=== PATIENT | male | born 1955 | race Caucasian/White ===

== ENCOUNTER 2018-11-01 10:36 | Outpatient (CLI) | payer BC ==
[~2018-11-01] VITALS: Ht 162.6 cm; Wt 79.4 kg
[2018-11-01] MEDS ORDERED: EMPA1TAB PO (10:53)
[2018-11-01] MEDS ORDERED: EXEN2PEN SQ (10:53)
[2018-11-01] MEDS ORDERED: GABA-488 PO (10:53)
[2018-11-01] MEDS ORDERED: TRAM50TA2 PO (10:53)
[2018-11-01] MEDS ORDERED: PRAV40TA2 PO (10:53)
[2018-11-01] MEDS ORDERED: GLIP5TAB13 PO (10:53)
[2018-11-01] MEDS ORDERED: ASPI-586 PO (10:53)
[2018-11-01] MEDS ORDERED: LORA1TAB PO (10:53)
[2018-11-01] MEDS ORDERED: FISH1CAP15 PO (10:53)
[2018-11-01] MEDS ORDERED: POLY17PO6 PO (10:58)
[2018-11-01] MEDS ORDERED: INUL1TAB4 PO (10:58)
[2018-11-01 11:00] VITALS: BP 116/82
== END 2018-11-01 12:05 | disposition home or self-care (01) ==
LOC: PREOP 10:36
PROVIDERS: ATTEND Orthopaedic Surgery
DX: Z01.818 Encounter for other preprocedural examination (principal)
CPT/HCPCS: 87081; 93005

== ENCOUNTER 2018-11-08 10:53 | Day surgery (SDC) | payer BC ==
[~2018-11-08] VITALS: Ht 162.6 cm; Wt 79.4 kg
[2018-11-08 10:53] VITALS: BP 121/80
[~2018-11-08 10:53] MED LIST: ASPI-586 PO; EMPA1TAB PO; EXEN2PEN SQ; FISH1CAP15 PO; GABA-488 PO; GLIP5TAB13 PO; INUL1TAB4 PO; LORA1TAB PO; POLY17PO6 PO; PRAV40TA2 PO; TRAM50TA2 PO
[2018-11-08] MEDS ORDERED: ceFAZolin 2 GM IV Premixed 50 ML IV ONE (11:15)
[2018-11-08] MEDS ORDERED: VANCOMYCIN 1000 MG/VIAL ONE (11:21)
[2018-11-08] MEDS ORDERED: BUP/EPI 0.5% 1:200,000 (SENSORCAINE) 30 ML VIAL ONE (11:21)
[2018-11-08] MEDS ORDERED: fentaNYL INJECTION 100 MCG/2 ML AMP ONE ×2 (11:33→15:06)
[2018-11-08] MEDS ORDERED: MIDAZOLAM 2 MG/2 ML (VERSED) VIAL ONE (11:33)
[2018-11-08] MEDS ORDERED: BACITRACIN 100,000 UNIT/NS 1000 ML POUR BOTTLE IR ONE ×2 (12:15)
[2018-11-08] MEDS: LACTATED RINGERS 1,000 ML IV PRN ×2 (12:40→14:30)
[2018-11-08] MEDS ORDERED: LIDOCAINE PF 2% 5 ML (XYLOCAINE) VIAL ONE (13:34)
[2018-11-08] MEDS ORDERED: SEVOFLURANE (ULTANE) 15 ML INHAL SOLN ONE ×5 (13:34→15:20)
[2018-11-08] MEDS ORDERED: ROCURONIUM 10 MG/ML 5 ML SYRINGE IV ONE (13:34)
[2018-11-08] MEDS ORDERED: proPOfol 200 MG/20 ML (DIPRIVAN) VIAL IV ONE (13:34)
[2018-11-08] MEDS ORDERED: PROPOFOL INJECTION 50 ML IV ONE (13:34)
[2018-11-08] MEDS ORDERED: GLYCOPYRROLATE 0.2 MG/ML (ROBINUL) 2 ML VIAL ONE (14:45)
[2018-11-08] MEDS ORDERED: NEOSTIGMINE 1 MG/ML 5 ML SYRINGE ONE (14:45)
[2018-11-08] MEDS ORDERED: ONDANSETRON 4 MG/2 ML (SDV) Z0FRAN ONE (14:45)
[2018-11-08] MEDS ORDERED: PHENYLEPHRINE 100 MCG/ML 10 ML (ANESTHESIA) SYR ONE (14:48)
[2018-11-08] MEDS ORDERED: PROMETHAZINE 25 MG (PHENERGAN) TAB PO PRN (15:15)
[2018-11-08] MEDS ORDERED: ACETAMINOPHEN 325 MG TABLET PO PRN (15:15)
[2018-11-08] MEDS ORDERED: BISACODYL 5 MG (DULCOLAX) TABLET PO PRN (15:15)
[2018-11-08] MEDS ORDERED: oxyCODONE/APAP 5/325MG (PERCOCET 5) TABLET PO PRN (15:15)
[2018-11-08] MEDS ORDERED: ONDANSETRON 4 MG/2 ML (SDV) Z0FRAN IV PRN (15:15)
[2018-11-08] MEDS ORDERED: HYDROcodone/APAP 5 MG/325 MG (LORTAB) TAB PO PRN (15:15)
[2018-11-08] MEDS ORDERED: BISACODYL 10 MG SUPP (DULCOLAX) PR PRN (15:15)
[2018-11-08] MEDS ORDERED: HYDROmorphone 2 MG/ML VIAL (DILAUDID) IV ONE (15:30)
[2018-11-08] MEDS ORDERED: ONDANSETRON 4 MG/2 ML (SDV) Z0FRAN IVP PRN (15:30)
[2018-11-08] MEDS ORDERED: morphine INJ 10 MG/ML 1ML (SYR OR VIAL) IVP ONE (15:30)
--- NOTE | 2018-11-08 16:34 | Diagnostic Imaging Report ---
INDICATION: Fluoroscopy during lumbar spine surgery. FINDINGS: Fluoroscopy was provided in OR during lumbar spine surgery. 8 seconds of fluoroscopy was utilized. Single image demonstrates surgical retractors at the level of L4 posteriorly, a surgical instrument noted posteriorly at L5. IMPRESSION: Fluoroscopy during lumbar spine surgery. Dictated by: Dictated on workstation # [id number]
[2018-11-08 17:05] VITALS: BP 137/82
[2018-11-08] MEDS: morphine INJ 4 MG/ML 1 ML (VIAL/SYRINGE) IVP PRN ×2 (19:30→23:42)
[2018-11-08 19:45] VITALS: BP 127/72
[2018-11-08] MEDS: ceFAZolin INJECTION 1,000 MG in NS (IVPB) 50 ML IV SCH (20:21)
[2018-11-08] MEDS: FAMOTIDINE 20 MG (PEPCID) TABLET PO SCH (20:21)
[2018-11-09 00:18] VITALS: BP 121/71
--- NOTE | 2018-11-09 00:32 | OPERATIVE REPORT ---
DATE OF SERVICE: 11/08/2018 SURGEON: Christie Romero DO OCCUPATIONAL THERAPY AIDE: RASHAAD Lanier This is a medically necessary procedure. Assistance was necessary for retraction of vital neurovascular structures. Without an lpn or medical assistant, the procedure would not be possible. PREOPERATIVE DIAGNOSES: 1. Lumbar spinal stenosis (lateral recess, connective tissue). 2. Lumbar radiculopathy. 3. Neurogenic claudication. POSTOPERATIVE DIAGNOSES: 1. Lumbar spinal stenosis (lateral recess, connective tissue). 2. Lumbar radiculopathy. 3. Neurogenic claudication. PROCEDURE PERFORMED: Bilateral L3-4, bilateral L5 laminectomy with hemifacetectomies and foraminotomies. COMPLICATIONS: None. SPECIMEN SENT: None. DRAIN PLACED: Hemovac. ESTIMATED BLOOD LOSS: Minimal. ANESTHESIA: General endotracheal tube anesthesia with local anesthetic. HISTORY OF PRESENT ILLNESS: The patient is a very pleasant 62-year-old gentleman who presented to me with severe bilateral lower extremity pain secondary to neurogenic claudication. MRI demonstrated spinal stenosis, worse at these levels. He did wish to proceed with surgery as he failed all conservative measures and his quality of life was severely compromised. DESCRIPTION OF PROCEDURE: The patient was identified by name on wrist band in the preoperative holding area. His operative site was signed, consent was signed. SCDs were placed. Neuromonitoring was hooked up. Antibiotics were started. He was taken to the operating room theater and placed under general endotracheal tube anesthesia and then transferred to the operating room table in the prone position. He was prepped and draped in the usual sterile fashion. Formal timeout was conducted. Lateral x-ray was then brought in and we verified our levels, so I made a midline lumbar incision and proceeded with bilateral subperiosteal paraspinal muscular approach exposing the posterior elements at L3-L4 and L4-L5. I then used a Leksell rongeur followed by a high speed bur and Kerrisons to perform a bilateral laminectomy with hemifacetectomies and foraminotomies. I paid particular attention on the left side where his symptoms were and I performed complete foraminotomies. I was finished. There was no further neurologic compression at these levels. I maintained hemostasis, irrigated the wound, placed a deep Hemovac drain subfascially. I closed the wound in my usual layered fashion utilizing 0 Vicryl followed by 2-0 Vicryl followed by running 3-0 subcuticular stitch. I applied dressings and took the patient in the supine position to the PACU where he awoke without incident. He tolerated the procedure well. PLAN: At this time is to admit the patient overnight for IV antibiotics, IV pain control and postoperative monitoring. I will plan to discharge him on postop day #1. He knows to keep his wound clean and dry. Job ID: [id number] DocumentID: [id number] Dictated Date: 11/08/2018 15:04:31 Mobility Architect Date: 11/09/2018 00:31:20 Dictated By: CHRISTIE ROMERO DO
[2018-11-09 04:00] VITALS: BP 139/74
[2018-11-09] MEDS: morphine INJ 4 MG/ML 1 ML (VIAL/SYRINGE) IVP PRN (05:29)
[2018-11-09] MEDS: ceFAZolin INJECTION 1,000 MG in NS (IVPB) 50 ML IV SCH ×2 (05:30→12:08)
[2018-11-09] MEDS ORDERED: OXYC1TAB87 PO (05:55)
--- NOTE | 2018-11-09 05:57 | Discharge Inst-Simple/Standard ---
Discharge Inst-Standard Discharge Medications New, Converted or Re-Newed RX: RX on Chart Patient Instructions/Follow Up Plan of Care/Instructions/FU: follow up in clinic in 2 weeks, please call [phone] for appointment dont bend, lift, twist push or pull 5lb weight restriction keep incision covered, clean and dry Activity as Tolerated: No Discharge Diet: ADA Diet Return to The Hospital For: chest pain, shortness of breath fever, chills, night sweats new onsent weakness, numbness TIEN HARRISON Nov 09, 2018 05:57
--- NOTE | 2018-11-09 06:00 | Discharge Summary ---
Diagnosis/Chief Complaint Date of Admission 11/08/2018 Date of Discharge 11/09/2018 Admission Diagnosis Admission Diagnosis lumbar stenosis with neurogenic claudication Discharge Diagnosis same Reason Hospital Visit L3-5 laminectomy Discharge Summary Hospital Course Hospital Course Mr Sapp was admitted for lumbar stenosis to undergo L3-5 laminectomy. He tolerated this procedure well without complication. His post operative course was uneventful and his vitals remained table and his pain was controlled. He was dismissed home on POD #1 Labs Laboratory Tests 11/08/18 11:43: Glucometer 123H Procedures None. Discharge Physical Examination Allergies: Coded Allergies: No Known Drug Allergies (Unverified , 11/01/18) Vitals & I&Os Vital Signs Date Time Temp Pulse Resp B/P (MAP) Pulse Ox O2 Delivery O2 Flow Rate FiO2 11/09/18 04:00 97.7 105 18 139/74 (95) 95 Room Air General Appearance: Alert, Oriented X3, Cooperative HEENT: Atraumatic Respiratory: Normal Air Movement Cardiovascular: Regular Rate Extremities: No Clubbing, No Cyanosis, No Edema, Normal Pulses Skin: No Rashes, No Breakdown Neuro: Normal Gait, Normal Speech, Strength at 5/5 X4 Ext Psych/Mental Status: Mental Status NL Discharge Home Medications Reviewed and agree with Discharge Medication list on patient's Discharge Instruction sheet Instructions to Patient/Family Please see electronic discharge instructions given to patient. Clinical Quality Measures DVT/VTE Risk/Contraindication: Risk Factor Score Per Nursin RFS Level Per Nursing on Admit: 4+=Very High TIEN HARRISON Nov 09, 2018 06:00
[2018-11-09] MEDS ORDERED: MULTIVIT W/MINERALS TAB (THERAGRAN M) PO SCH (07:00)
[2018-11-09 08:00] VITALS: BP 115/69
[2018-11-09] MEDS: FAMOTIDINE 20 MG (PEPCID) TABLET PO SCH (08:27)
[2018-11-09] MEDS ORDERED: LORA1TAB PO (09:40)
[2018-11-09] MEDS ORDERED: INUL1TAB4 PO (09:40)
[2018-11-09] MEDS ORDERED: ERGO50006 PO (09:40)
[2018-11-09] MEDS ORDERED: HYDR-3820 PO (09:42)
--- NOTE | 2018-11-09 09:55 | Physical Therapy Evaluation ---
PT Evaluation-General Medical Diagnosis Admission Date November 08, 2018 Medical Diagnosis: stenosis Onset Date: Nov 08, 2018 Therapy Diagnosis Therapy Diagnosis: debility Height/Weight Height (Feet): 5 Height (Inches): 4.00 Weight (Pounds): 175 Weight (Ounces): 0.0 Precautions Precautions/Isolations: Fall Prevention, Standard Precautions Weight Bear Status Right Lower Extremity: Right Full Weight Bearing Left Lower Extremity: Left Full Weight Bearing Referral Physician: Nick Reason for Referral: Evaluation/Treatment Medical History Additional Medical History unremarkable Current History s/p L3-5 laminectomy Reviewed History: Yes Social History Home: Single Level Current Living Status: Spouse Prior/Core FIM Prior Level of Function Therapy Code Descriptions/Definitions Functional Simpson Measure: 0=Not Assessed/NA 4=Minimal Assistance 1=Total Assistance 5=Supervision or Setup 2=Maximal Assistance 6=Modified Simpson 3=Moderate Assistance 7=Complete Simpson Therapy Quality Codes: 6 Independent with activity with or without an assistive device 5 Patient requires set up or clean up by helper. Patient completes activity by themselves 4 Supervision or touching assist (CGA). [place] provide cues , steadying assist 3 The helper provides less than half the effort to complete the activity 2 The helper provides more than half the effort to complete the activity 1 Dependent. The helper does all the effort to complete an activity 7 Patient refused to complete or attempt activity 9 The patient did not perform the activity before the current illness or injury 88 Not attempted due to Medical conditions or safety concerns Functional Abilities and Goals: Independent: Patient completed the activities by him/herself, with or without an assistive device, with no assistance from a helper. Needed Some Help: Patient needed partial assistance from another person to complete activities. Dependent: A helper completed the activities for the patient. Unknown: Not Applicable: Bed Mobility: 7 Transfers (B,C,W/C) (FIM): 7 Gait: 7 Stairs: 7 Indoor Mobility (Ambulation): Independent Stairs: Independent Prior Devices Use: None PT Evaluation-Current Subjective Patient agrees to PT. He is currently up independently in room. Pain Numeric Pain Scale: 3 Location: Lower Location Body Site: Back Pain Description: Acute Objective Patient Orientation: Normal For Age Problem Solving: Good Attachments: Drains ROM/Strength ROM Lower Extremities bilateral LE WFL Strength Lower Extremities 5/5 grossly bilaterally Integumentary/Posture Integumentary refer to nursing notes Bowel Incontinence: No Bladder Incontinence: No Posture erect Neuromuscular (Tone, Coordination, Reflexes) grossly intact with all Sensory Vision: Functional Hearing: Functional Sensation Right Lower Extremit: Intact Sensation Left Lower Extremity: Intact Transfers Therapy Code Descriptions/Definitions Functional Simpson Measure: 0=Not Assessed/NA 4=Minimal Assistance 1=Total Assistance 5=Supervision or Setup 2=Maximal Assistance 6=Modified Simpson 3=Moderate Assistance 7=Complete Simpson Transfers (B, C, W/C) (FIM): 7 Scootin Supine to/from Sit: 7 Sit to/from Stand: 7 Gait Mode of Locomotion: Walk Anticipated Mode of Locomotion: Walk Gait (FIM): 7 Distance (FIM): 3=150 ft Distance: >500' Gait Level of Assist: 7 Gait Assistive Device: None Comments/Gait Description safe and functional Balance Sitting Static: Normal Sitting Dynamic: Normal Standing Static: Normal Standing Dynamic: Normal Assessment/Needs PT issued back brace prior to evaluation. Patient is currently at independent [facility] with all gross motor skills and will dismiss to home with spouse at [facility] Rehab Potential: Good PT Plan Treatment/Plan Treatment Plan: Discontinue PT, goals met Treatment Plan: Other Treatment Duration: Nov 09, 2018 Frequency: 1 time per week Estimated Hrs Per Day: .25 hour per day Patient and/or Family Agrees t: Yes Discharge Recommendations Therapy D/C Recommendations: Home w/ Family Support, Home Independently Time/GCodes Time In: 851 Time Out: 904 Total Billed Treatment Time: 13 Total Billed Treatment 1 visit EVLowC 13 min G Codes Necessary: TRIXIE Vargas PT Nov 09, 2018 09:54
--- NOTE | 2018-11-09 10:46 | Anesthesia-General Post-Op ---
General Patient Condition Mental Status/LOC: Same as Preop Cardiovascular: Satisfactory Nausea/Vomiting: Absent Respiratory: Satisfactory Pain: Controlled Complications: Absent Post Op Complications Complications None Follow Up Care/Instructions Patient Instructions None needed. Anesthesia/Patient Condition Patient Condition Patient is doing well, no complaints, stable vital signs, no apparent adverse anesthesia problems. No complications reported per nursing. APRIL FLANAGAN CRNA Nov 09, 2018 10:46
[2018-11-09 12:30] VITALS: BP 130/73
[2018-11-09 12:45] VITALS: BP 130/73
== END 2018-11-09 12:45 | disposition home or self-care (01) ==
LOC: SDC 10:53 → 4TH 17:05 → SDC 11-09 12:45
PROVIDERS: ATTEND Orthopaedic Surgery
DX: M48.062 Spinal stenosis, lumbar region with neurogenic claudication (principal); M54.16 Radiculopathy, lumbar region; E11.9 Type 2 diabetes mellitus without complications; F17.210 Nicotine dependence, cigarettes, uncomplicated; Z79.82 Long term (current) use of aspirin; Z79.899 Other long term (current) drug therapy
CPT/HCPCS: 82962; 94664

== ENCOUNTER → 2019-01-28 | Outpatient (CLI) | payer OTHER ==
[~2019-01-28] MED LIST changes: +ERGO50006 PO; +HYDR-3820 PO; +OXYC1TAB87 PO
--- NOTE | 2019-01-28 15:29 | Diagnostic Imaging Report ---
INDICATION: Back pain with radicular symptoms. COMPARISON: None. FINDINGS: Frontal and lateral views of the lumbar spine were obtained. Alignment and vertebral heights are maintained. There is no fracture or destructive process. Mild multilevel degenerative disease is noted in the lumbar spine. Limited views of the abdomen demonstrate nonobstructive bowel gas pattern. IMPRESSION: 1. No acute fracture or dislocation of the lumbar spine. 2. Mild multilevel degenerative changes. Dictated by: Dictated on workstation # [id number]
== END ==
LOC: RAD FS 14:55
PROVIDERS: ATTEND Family Medicine
DX: M47.26 Other spondylosis with radiculopathy, lumbar region (principal)
CPT/HCPCS: 72100